=== PATIENT | male | born 1990 | race Caucasian/White ===

== ENCOUNTER 2023-07-25 13:08 | Emergency (ER) | payer MEDICAID ==
[~2023-07-25] VITALS: Ht 180.3 cm; Wt 99.0 kg
[2023-07-25 13:26] VITALS: O2SAT 100
[2023-07-25 14:48] LABS: CLARITY URINE CLEAR (CLEAR); COLOR URINE YELLOW (YELLOW); GLUCOSE URINE NEGATIVE (NEGATIVE); KETONES URINE NEGATIVE (NEGATIVE); LEUKOCYTE ESTERASE URINE TRACE (NEGATIVE); NITRITE URINE NEGATIVE (NEGATIVE); OCCULT BLOOD URINE TRACE (NEGATIVE); PH URINE 5.5 (4.5-8.0); PROTEIN URINE NEGATIVE (NEGATIVE); SPECIFIC GRAVITY URINE 1.021 (1.005-1.030); UROBILINOGEN URINE 0.2 E.U./dL (0.2-1.0)
[2023-07-25 15:07] LABS: SQUAMOUS EPITHELIAL CELL URINE 2+ /lpf (RARE/1+)
[2023-07-25 15:08] LABS: MUCUS URINE 3+ /lpf (NONE/TRACE)
[2023-07-25 15:09] LABS: RBC URINE 0-2 /hpf (0-2)
[2023-07-25 15:10] LABS: BACTERIA URINE TRACE
[2023-07-25] MEDS: IBUPROFEN 600MG TABLET PO STA (18:20)
[2023-07-25] MEDS ORDERED: CEFP200T13 MT (18:27)
[2023-07-25 19:14] VITALS: BP 129/65; PULSE 85; RESP 20; TEMP 99.9
== END 2023-07-25 18:38 | disposition home or self-care (01) ==
LOC: ER 14:17
DX: B34.9 Viral infection, unspecified (principal); N12 Tubulo-interstitial nephritis, not specified as acute or chronic; Z20.822 Contact with and (suspected) exposure to COVID-19
CPT/HCPCS: 71046; 81003; 87426; 87804; 99284